=== PATIENT | female | born 1980 | race Caucasian/White ===

== ENCOUNTER 2019-06-30 18:20 | Emergency (ER) | payer BC, SELFPAY ==
[2019-06-30 18:31] VITALS: BP 118/76; PULSE 73; RESP 16; TEMP 37.1; O2SAT 98; BMI 29.0
--- NOTE | 2019-06-30 19:18 | ED_ITS ---
HPI - URI/Sore Throat General Chief Complaint: Upper Respiratory Symptoms Stated Complaint: can not swallow, hurts, base of neck hurts Time Seen by Provider: 06/30/19 19:03 Source: patient Mode of arrival: Ambulatory Limitations: no limitations History of Present Illness HPI Narrative: Patient is a 39-year-old female here for evaluation of a sore throat. She states that has been going on for the past 4-5 days. States that it hurts to swallow. Was seen at a walk-in clinic yesterday. She had a rapid strep and a flu test completed which were negative. She also stated that they obtained a throat culture. Was not given any medications. Denies any fevers. No cough. Sore throat and neck pain. Pain in the back of her head. Has tried [id number] cough and cold preparation medications without any improvement of symptoms. Related Data Previous Rx's Medication Instructions Recorded lidocaine HCl [Lidocaine Viscous] 1 applictn MM TID PRN #15 ml 06/30/19 Review of Systems Constitutional Constitutional: Denies fever(s) and Denies headache(s) ENT Ears, Nose, Mouth, and Throat: Denies change in voice, Denies dental pain, Denies facial pain, Denies headache(s), Denies nasal congestion, Denies nasal discharge, Denies disequilibrium, Denies sinus pressure, Reports sore throat and Denies tongue swelling Cardiovascular Cardiovascular: Denies chest pain and Denies dyspnea Respiratory Respiratory: Denies cough and Denies dyspnea Gastrointestinal Gastrointestinal: Denies abdominal pain, Denies nausea and Denies vomiting Genitourinary Genitourinary: Denies dysuria Musculoskeletal Musculoskeletal: Denies myalgias and Denies arthralgias Integumentary/Breasts Skin/Breast: Denies lesions and Denies rash Neurologic Neurologic: Denies behavioral changes, Denies confusion, Denies headache(s) and Denies disequilibrium Psychiatric Psychiatric: Denies behavioral changes and Denies confusion Hematologic/Lymphatic Hematologic/Lymphatic: Denies easy bleeding and Denies easy bruising Allergic/Immunologic Allergic/Immunologic: Denies tongue swelling Patient History Medical History Healthy adult (Acute) tobacco type: vaping alcohol intake frequency: holidays/special occasions only Substance Use Type: does not use Exam Initial Vital Signs Initial Vital Signs: Vital Signs Temperature 98.8 F 01/01/20 18:31 Pulse Rate 73 06/30/19 18:31 Respiratory Rate 16 06/30/19 18:31 Blood Pressure 118/76 06/30/19 18:31 Pulse Oximetry 98 06/30/19 18:31 Const General: cooperative and comfortable Orientation: alert, awake and oriented x3 HENMT Head: normal to inspection and normocephalic Ears: TM's normal bilaterally Nose: external nose normal Teeth and gingiva: dentition normal Throat: posterior oropharynx normal Neck Lymphatic: No lymphadenopathy Resp Effort & Inspection: normal respiratory effort Auscultation: clear to auscultation bilaterally Cardio Rate: regular rate Rhythm: regular rhythm Pulses: radial pulses present GI Inspection: non-distended Palpation: soft Skin Lesions: no lesions Rashes: no rashes Neuro General: alert and awake Cognition: normal cognition Speech: speech normal Extrem General: normal to inspection and capillary refill normal Psych Appearance: grossly normal and well kempt Course Orders Ordered: ED Orders 06/30/19 19:35 Throat Culture Stat Discontinued Medications Dexamethasone (Decadron) 12 mg PO NOW ONE Stop: 06/30/19 19:19 Last Admin: 06/30/19 19:33 Dose: 12 mg Documented by: JOEL Vital Signs Vital signs: Vital Signs - 8 hr 06/30/19 20:36 Pulse Rate 77 Respiratory Rate 16 Blood Pressure 130/90 Pulse Oximetry 100 MDM - URI/Sore Throat Lab Data Attestation: I reviewed the patient's lab results. Labs: Lab Results 06/30/19 Range/Units 19:35 Group A Strep (PCR) Cancelled Point of Care Testing Rapid Strep A Negative [facility] Narrative Medical decision making narrative: Strep test was negative. She was afebrile. Low suspicion for the flu. Throat culture was pending. Patient had a relatively benign exam. She was given Decadron to try to help with her symptoms. No rashes. No respiratory distress. No indication for antibiotics. We did discuss mono however she has only had the symptoms for 4 days and I feel that drawing that test today would most likely be negative. I did discuss further symptom treatment. We discussed return precautions and follow-up instructions. Both her and her who was at bedside expressed understanding and agreement with plan. Discharge Plan Departure Patient Disposition: Home Clinical Impression: Pharyngitis Qualifiers: Pharyngitis/tonsillitis etiology: unspecified etiology Qualified Code(s): J02.9 - Acute pharyngitis, unspecified Discharge Date/Time: 06/30/19 20:36 Instructions: Sore Throat Activity Restrictions/Additional Instructions: Take the Tylenol and ibuprofen like we discussed. Contact your primary provider for follow-up especially if your symptoms are not better in the next week. Return to the emergency department for any new or worsening symptoms. A throat culture was pending at the time of discharge. We will call you for any results requiring antibiotics. Prescriptions: New Lidocaine Viscous 2 % solution 1 applictn MM TID PRN (Reason: pain) Qty: 15 RF: 0 Stand Alone Forms: Work Release Note
[2019-06-30] MEDS: dexAMETHasone 4 MG TABLET 12 MG PO (19:33)
[2019-06-30 20:36] VITALS: BP 130/90; PULSE 77; RESP 16; O2SAT 100
== END 2019-06-30 20:36 | disposition home or self-care (01) ==
PROVIDERS: Emergency Provider Emergency Medicine
DX: J02.9 Acute pharyngitis, unspecified (principal); M54.2 Cervicalgia
CPT/HCPCS: 87070; 87880; 99282; 99283

== ENCOUNTER → 2020-07-06 15:39 | Outpatient (CLI) | payer OTHER, SELFPAY ==
[2020-07-06] MEDS: COVID-19 VACC(MODERNA-1)/PF 100 MCG/0.5 ML VIAL IM (15:43)
== END ==
PROVIDERS: Visit Provider Internal Medicine
DX: Z23 Encounter for immunization (principal)
CPT/HCPCS: 0011A; 91301

== ENCOUNTER → 2020-08-03 10:51 | Outpatient (CLI) | payer OTHER, SELFPAY ==
[2020-08-03] MEDS: COVID-19 VACC #2, MRNA(MOD) 100 MCG/0.5 ML VIAL IM (10:56)
== END ==
PROVIDERS: Visit Provider Internal Medicine
DX: Z23 Encounter for immunization (principal)
CPT/HCPCS: 0012A; 91301